=== PATIENT | male | born 1990 | race African-American/Black ===

== ENCOUNTER 2022-08-03 12:43 | Inpatient (IN) | payer OTHER ==
[2022-08-03 14:30] VITALS: BMI 31.4
[2022-08-03] MEDS ORDERED: BENZOCAINE/MENTHOL (CHLORASEPTIC ) LOZENGE MM PRN (15:09)
[2022-08-03] MEDS ORDERED: LORazepam 2 MG TABLET PO ONE (15:09)
[2022-08-03] MEDS ORDERED: IBUPROFEN 600 MG TABLET (FP) PO PRN (15:09)
[2022-08-03] MEDS ORDERED: BENZONATATE 200 MG CAPSULE PO PRN (15:09)
[2022-08-03] MEDS ORDERED: NALOXONE HCL 0.4 MG/ML VIAL IM PRN (15:09)
[2022-08-03] MEDS ORDERED: MAG HYDROX/AL HYDROX/SIMETH 30 ML UNIT-DOSE CUP PO PRN (15:09)
[2022-08-03] MEDS ORDERED: LOPERAMIDE HCL 2 MG CAPSULE PO PRN (15:09)
[2022-08-03] MEDS ORDERED: ACETAMINOPHEN 325 MG TABLET (FP) PO PRN (15:09)
[2022-08-03] MEDS ORDERED: BISMUTH SUBSALICYLATE 262 MG/15 ML BTL PO PRN (15:09)
[2022-08-03] MEDS ORDERED: LORazepam 1 MG TABLET PO PRN (15:09)
[2022-08-03] MEDS ORDERED: MAGNESIUM HYDROX 2400MG/30ML ORAL SUSPENSION 30 ML CUP PO PRN (15:09)
[2022-08-03] MEDS ORDERED: NALOXONE HCL (KLOXXADO) 8 MG SPRAY NS PRN (15:09)
[2022-08-03] MEDS ORDERED: IBUPROFEN 400 MG TABLET (FP) PO PRN (15:09)
[2022-08-03] MEDS ORDERED: DICYCLOMINE HCL 10 MG CAPSULE PO PRN (15:09)
[2022-08-03] MEDS ORDERED: METHOCARBAMOL 500 MG TABLET PO PRN (15:09)
[2022-08-03] MEDS ORDERED: hydrOXYzine PAMOATE 25 MG CAPSULE (FP) PO PRN (15:09)
[2022-08-03] MEDS ORDERED: guaiFENesin 600 MG TABLET.ER (FP) PO PRN (15:09)
[2022-08-03] MEDS ORDERED: POLYETHYLENE GLYCOL (HEALTHYLAX) 3350 17 GM PACKET PO PRN (15:09)
[2022-08-03] MEDS ORDERED: ONDANSETRON *ODT* 4 MG TABLET SL PRN (15:09)
[2022-08-03] MEDS ORDERED: PRENATAL VITAMINS W/ FOLIC ACID TABLET (FP) PO ONE (15:30)
[2022-08-03] MEDS ORDERED: LORazepam 2 MG TABLET ONE (15:30)
[2022-08-03] MEDS: PRENATAL VITAMINS W/ FOLIC ACID TABLET (FP) PO SCH (15:36)
[2022-08-03] MEDS: LORazepam 2 MG TABLET PO SCH (17:45)
[2022-08-03] MEDS ORDERED: MELATONIN 5 MG TABLETS PO SCH (22:00)
[2022-08-03] MEDS ORDERED: THIAMINE HCL 100 MG TABLET (FP) PO SCH (22:00)
[2022-08-04] MEDS: LORazepam 2 MG TABLET PO SCH ×3 (00:13→10:19)
[2022-08-04] MEDS: PRENATAL VITAMINS W/ FOLIC ACID TABLET (FP) PO SCH (10:18)
[2022-08-04 10:21] VITALS: RESP 18
[2022-08-04 11:22] LABS: POTASSIUM 3.9 mmol/L (3.5-5.1)
[2022-08-04 11:24] LABS: CALCIUM 8.9 mg/dL (8.5-10.1)
[2022-08-04 11:25] LABS: ALBUMIN 3.8 g/dl (3.4-5.0); BLOOD UREA NITROGEN 7.7 mg/dL (7-18)
[2022-08-04 11:26] LABS: HEMATOCRIT 41.3 % (35.4-49); MCH 29.9 pg (25.7-33.7); MCHC 33.9 g/dl (32.0-35.9); MEAN CELL VOLUME 88.3 fl (80-96); MEAN PLT VOLUME 9.1 fl (7.5-11.1); PLATELET COUNT 137 10^3/uL (134-434); RBC 4.68 M/mm3 (4.00-5.60); RDW 13.8 % (11.9-15.9)
[2022-08-04 11:28] LABS: CREATININE 1.2 mg/dL (0.55-1.3)
[2022-08-04 11:31] LABS: BILIRUBIN,TOTAL 1.3 mg/dL (0.2-1)
[2022-08-04 14:08] VITALS: BP 155/88; PULSE 106; TEMP 98
[2022-08-05] MEDS ORDERED: LORazepam 1 MG TABLET PO SCH (05:00)
[2022-08-06] MEDS ORDERED: LORazepam 0.5 MG TABLET PO PRN
[2022-08-06] MEDS ORDERED: LORazepam 0.5 MG TABLET PO SCH (05:00)
[2022-08-07] MEDS ORDERED: LORazepam 0.5 MG TABLET PO ONE (05:00)
== END 2022-08-04 02:06 | disposition left against medical advice (07) | DRG 770 ==
LOC: YASAS 12:43 → Y3N 15:27
PROVIDERS: ADMIT Allergy & Immunology; ATTEND Surgery
PROC: HZ2ZZZZ Detoxification Services for Substance Abuse Treatment (ICD-10-PCS; principal; 2022-08-03)
DX: F10.230 Alcohol dependence with withdrawal, uncomplicated (principal); F12.20 Cannabis dependence, uncomplicated; F41.1 Generalized anxiety disorder; I10 Essential (primary) hypertension; E66.9 Obesity, unspecified; Z68.31 Body mass index [BMI] 31.0-31.9, adult; Z87.19 Personal history of other diseases of the digestive system
CPT/HCPCS: 36415; 80053; 85027; 86780; C9803-CS; U0003; U0005